=== PATIENT | female | born 1940 ===

== ENCOUNTER 2016-12-21 09:30 | Emergency (ER) | payer MEDICARE ==
[2016-12-21 09:41] VITALS: BP 157/71
--- NOTE | 2016-12-21 10:18 | UC ---
Respiratory Complaint HPI - HPI Summary HPI Summary: Nasal congestion, PND, cough, ST starting 2-3 days ago. Pt is concerned because she often develops severe coughing and chest congestion when she has respiratory infections. Denies hx of COPD, pneumonia, hospitalization for respiratory problems. Has had good luck with loratadine and guaifenesin DM in the past. - History of Current Complaint Chief Complaint: UCRespiratory Stated Complaint: SINUS,COUGH Time Seen by Provider: 12/21/16 09:57 Hx Obtained From: Patient ?: No Onset/Duration: Gradual Onset, Lasting Days Timing: Constant Severity Initially: Mild Severity Currently: Mild Character: Cough: Nonproductive Aggravating Factors: Exertion, Deep Breaths Alleviating Factors: Upright Position Associated Signs And Symptoms: Positive: URI, Nasal Congestion. Negative: Fever , Chills, Wheezing - Allergies/Home Medications Allergies/Adverse Reactions: Allergies Allergy/AdvReac Type Severity Reaction Status Date / Time Aspirin Allergy GI Upset Verified 12/21/16 09:41 Penicillins [PCN] Allergy Hives Verified 12/21/16 09:41 Home Medications: Home Medications Acetaminophen TAB* [Tylenol TAB*] 325 mg PO Q4H PRN 12/21/16 [History Confirmed 12/21/16] PMH/Surg Hx/FS Hx/Imm Hx Previously Healthy: Yes - Surgical History Surgical History: Yes Surgery Procedure, Year, and Place: gallbladder. hysterectomy. appendix - Family History Known Family History: Positive: Hypertension - Social History Occupation: Retired Alcohol Use: None Substance Use Type: None Smoking Status (MU): Never Smoked Tobacco Review of Systems Constitutional: Negative Skin: Negative Eyes: Negative ENT: Sore Throat, Nasal Discharge, Sinus Congestion Respiratory: Cough Cardiovascular: Negative Gastrointestinal: Negative Genitourinary: Negative Motor: Negative Neurovascular: Negative Musculoskeletal: Negative Neurological: Negative Psychological: Negative All Other Systems Reviewed And Are Negative: Yes Physical Exam Triage Information Reviewed: Yes Appearance: Well-Appearing, No Pain Distress Vital Signs: Initial Vital Signs Temp 98.2 F 12/21/16 09:37 Pulse 69 12/21/16 09:37 Resp 14 12/21/16 09:37 BP 157/71 12/21/16 09:37 Pulse Ox 98 12/21/16 09:37 Vital Signs Reviewed: Yes Eye Exam: Normal Eyes: Positive: Conjunctiva Clear ENT: Positive: Hearing grossly normal, Pharynx normal, Nasal congestion, TMs normal. Negative: Nasal drainage, Tonsillar swelling, Tonsillar exudate Dental Exam: Normal Neck exam: Normal Neck: Positive: Supple, Nontender, No Lymphadenopathy Respiratory Exam: Other - occ cough Respiratory: Positive: Chest non-tender, Lungs clear, Normal breath sounds, No respiratory distress, No accessory muscle use Cardiovascular Exam: Normal Cardiovascular: Positive: RRR, No Murmur Musculoskeletal Exam: Normal Neurological Exam: Normal Neurological: Positive: Alert Psychological Exam: Normal Skin Exam: Normal UC Diagnostic Evaluation - Laboratory O2 Sat by Pulse Oximetry: 98 Respiratory Course/Dx - Differential Dx/Diagnosis Provider Diagnoses: URI, likely viral Discharge - Discharge Plan Condition: Stable Disposition: HOME Prescriptions: Benzonatate CAP* [Tessalon 100 MG CAP*] 100 mg PO TID PRN #30 cap PRN Reason: Cough Dextromethorphan-Guaifenesin [Guaifenesin/Dextromethorp] 5 - 10 ml PO QID #1 bottle Loratadine [Hm Loratadine] 10 mg PO DAILY #30 tab Patient Education Materials: Upper Respiratory Infection (ED) Additional Instructions: Call or return if you develop increasing fever, shortness of breath, chest pain , bloody sputum, or otherwise worsen. If you have not improved at all after several days, contact your primary care physician or return here.
== END 2016-12-21 10:20 | disposition home or self-care (01) ==
LOC: UCCORT 09:30
DX: J06.9 Acute upper respiratory infection, unspecified (principal); Z88.6 Allergy status to analgesic agent; Z88.0 Allergy status to penicillin; Z90.49 Acquired absence of other specified parts of digestive tract; Z90.710 Acquired absence of both cervix and uterus
CPT/HCPCS: 99202; G0463